=== PATIENT | male | born 1980 | race African-American/Black ===

== ENCOUNTER 2016-05-20 08:19 | Emergency (ER) | payer OTHER ==
[~2016-05-20] VITALS: Ht 167.6 cm; Wt 137.4 kg
[2016-05-20 08:27] VITALS: BP 156/84
--- NOTE | 2016-05-20 08:50 | PHYS DOC ---
Past Medical History Past Medical History: Diabetes-Type II Past Surgical History: No Surgical History Alcohol Use: None Drug Use: None Adult General Chief Complaint Chief Complaint: Congestion HPI HPI Patient is a 36 year old male who presents with 2 weeks of dry cough, rhinorrhea, chills, and nasal congestion. States he is getting better on the whole, but has lingering symptoms mainly concerned for sinus congestion. Denies sore throat, ear pain, headache, facial pain, n/v, measured fever, chest pain, dyspnea, abd pain, diarrhea, sick contacts. Has been taking OTC cold meds and allergy meds. Denies taking nasal saline rinses. Review of Systems Review of Systems Constitutional: Denies fever [] Eyes: Denies change in visual acuity, redness, or eye pain [] HENT: Denies sore throat [] Respiratory: Denies shortness of breath [] Cardiovascular: No additional information not addressed in HPI [] GI: Denies abdominal pain, nausea, vomiting, bloody stools or diarrhea [] : Denies dysuria or hematuria [] Musculoskeletal: Denies back pain or joint pain [] Integument: Denies rash or skin lesions [] Neurologic: Denies headache, focal weakness or sensory changes [] Endocrine: Denies polyuria or polydipsia [] Allergies Allergies Allergies Coded Allergies Type Severity Reaction Last Updated Verified No Known Drug Allergies 05/20/16 No Physical Exam Physical Exam Constitutional: Well developed, well nourished, no acute distress, non-toxic appearance. [] HENT: Normocephalic, atraumatic, bilateral external ears normal, oropharynx moist, no oral exudates. Bilateral nasal hyperemia. Left preauricular swelling and tenderness with no overlying skin changes. No sinus tenderness [] Eyes: PERRLA, EOMI, conjunctiva normal, no discharge. [] Neck: Normal range of motion, no tenderness, supple, no stridor. [] Cardiovascular:Heart rate regular rhythm [] Lungs & Thorax: Bilateral breath sounds clear to auscultation [] Abdomen: Bowel sounds normal, soft, no tenderness. [] Skin: Warm, dry, no erythema, no rash. [] Back: Normal ROM. [] Extremities: ROM intact, no edema. [] Neurologic: Alert and oriented X 3, normal motor function, normal sensory function, no focal deficits noted. [] Psychologic: Affect normal, judgement normal, mood normal. [] Current Patient Data Vital Signs Vital Signs Date Time Temp Pulse Resp B/P Pulse Ox O2 Delivery O2 Flow Rate FiO2 05/20/16 08:27 98.3 98 17 97 Room Air 98.3 Course & Med Decision Making Course & Med Decision Making Pertinent Labs and Imaging studies reviewed. (See chart for details) Discussed symptomatic care for likely viral URI. Return precautions given. He understood and agrees with plan. Dragon Disclaimer Dragon Disclaimer This electronic medical record was generated, in whole or in part, using a voice recognition dictation system. Departure Departure Impression: Primary Impression: Upper respiratory infection, viral Disposition: HOME, SELF-CARE Condition: STABLE Patient Instructions: Sinusitis, [id number] Additional Instructions: Use nasal saline rinse (such as Gricelda pot) to help with nasal congestion. Take ibuprofen as needed for pain. Follow up with your primary care doctor. Return for any concerns. Ant BECERRA MD May 20, 2016 08:50
== END 2016-05-20 09:07 | disposition home or self-care (01) ==
LOC: ER 08:19
DX: J06.9 Acute upper respiratory infection, unspecified (principal); E11.9 Type 2 diabetes mellitus without complications
CPT/HCPCS: 99281